=== PATIENT | male | born 1960 | race Caucasian/White ===

== ENCOUNTER 2023-03-02 04:00 | Day surgery (SDC) | payer OTHER ==
[2023-03-02] VITALS (216 sets, daily range): BP systolic 85–161; BP diastolic 48–105
[~2023-03-02] VITALS: Ht 170.2 cm; Wt 68.2 kg
--- NOTE | 2023-03-02 07:10 | NUR ---
Patient arrived to the [facility] suite, identification and demographics confirmed. Patient to room 9, AAO, ambulatory, vitals obtained, ID/allergy/fall bands placed, changed into hospital gown, JACQUES hose, and non-slip socks. Procedure and timeline explained for treatment and discharge. All questions answered and the patient presents no concerns at this time.
--- NOTE | 2023-03-02 07:35 | NUR ---
Dr. Ochoa telephoned with patient intake information including usage, dose, last dose/time taken and initial vital signs. Patient history and allergies reviewed with MD. Orders received for 10 mg PO Valium and 0.2 mg PO Clonidine now. Will reassess per protocol in 1.5 hours and update MD with assessment and vitals
[2023-03-02] MEDS ORDERED: TAMSULOSIN0.4 MG PO (08:12)
[2023-03-02] MEDS ORDERED: ZOLOFT100 MG PO (08:12)
[2023-03-02] MEDS ORDERED: MIRALAX17 GM PO (08:13)
[2023-03-02] MEDS ORDERED: OMEPRAZOLE DR40 MG PO (08:13)
[2023-03-02 08:16] LABS: BASO% 0.7 % (0-3); EOS% 1.6 % (0-8); HEMATOCRIT 44.6 % (39.0-50.0); HEMOGLOBIN 14.8 g/dl (14.0-18.0); IMMATURE GRANULOCYTES 0.5 % (0.0-5.0); LYMPH% 20.9 % (15-41); MEAN CELL VOLUME 88.5 fL CALC (80.0-100.0); MEAN CORPUSCULAR HGB 29.4 pG CALC (26.0-32.0); MEAN CORPUSCULAR HGB CONC 33.2 g/dL CAL (32.0-36.0); MONO% 7.8 % (2-13); NEUT# 4.2 thou/uL (1.82-7.42); NEUT% 68.5 % (42-76); RED BLOOD COUNT 5.04 mill/uL (4.70-6.10); RED CELL DISTRI WIDTH 12.1 % (11.5-15.5)
[2023-03-02] MEDS ORDERED: OX BILE PO (08:16)
[2023-03-02 08:31] LABS: ALBUMIN 4.2 g/dL (3.2-5.0); ALKALINE PHOSPHATASE 62 u/l (38-126); ANION GAP 7 (6-22 (CALC)); BILIRUBIN, TOTAL 0.2 mg/dL (0.2-1.3); BUN 31 mg/dL (8-23); BUN/CREATININE RATIO 40 (12-20 (CALC)); CARBON DIOXIDE 30 mmol/l (22-30); CHLORIDE 107 mmol/l (95-108); CREATININE 0.8 mg/dL (0.7-1.3); GFR FOR AFR.AMER. > 60 ML/MIN (>=60 (CALC)); GFR OTHER RACES > 60 ML/MIN (>=60 (CALC)); POTASSIUM 4.3 mmol/l (3.5-5.1); SGOT/AST 36 u/l (19-48); SODIUM 139 mmol/l (137-146); TOTAL PROTEIN 6.2 g/dL (6.3-8.2)
--- NOTE | 2023-03-02 09:06 | NUR ---
telephoned with reassessment and new vital signs. Reviewed initial Valium and Clonidine dose with MD. Orders received for 5 mg PO Valium now. Will reassess per protocol in 1.5 hours and update MD with assessment and vitals.
--- NOTE | 2023-03-02 10:17 | NUR ---
Patient resting comfortably in bed. Easily aroused, maintains focus, and drifts back to sleep. No signs of active withdrawal or distress noted at this time. Continuous SPO2, rhythm, and respiratory monitoring initiated. IVF @ 250 mL/HR, room air, VSS.
--- NOTE | 2023-03-02 11:17 | NUR ---
Induction Note Patient to [facility] procedure room. Time out performed at 1105. Patient placed on monitors, Srinivas hugger, bilateral wrist restraints applied for ET tube protection. Versed 5mg given IV push at 1106 Tourniquet applied to right arm Lidocaine 100mg given at 1107 IV push followed by Rocoronium 10mg at 1108 IV push and held for 90 seconds. Propofol bolus of 140mg given at 1110 IV push. Succinylcholine 80mg given IV push at 1111. Smooth intubation with 7.5 ETT secured with tape 21 at the lip. Positive CO2. Positive Auscultation for air exchange. Patient placed on ventilator for spontaneous ventilation. Placed on Propofol IV drip at 1112. OG inserted. Positive air on auscultation. Positive gastric content. Stomach washed at this time. Naltrexone 50mg given via OG tube with Clonidine 0.1 mg given via OG Tube. OG clamped for 45 minutes. Will monitor patient for symptoms of withdrawal and adjust propfol accordingly.
--- NOTE | 2023-03-02 12:02 | NUR ---
OG open note OG open at this time. Gastric content draining into drainage bag. OG to drain for 45 minutes. Propofol will be titrated down based on patient.
--- NOTE | 2023-03-02 12:47 | NUR ---
OG close note Stomach washed at this time. Naltrexone 50 mg with Clonidine 0.3 mg via OG tube. OG will be clamped for 45 minutes.
--- NOTE | 2023-03-02 14:20 | NUR ---
OG close note Stomach washed at this time. Naltrexone 50 mg with Clonidine 0.2 mg via OG tube. OG will be clamped for 45 minutes.
--- NOTE | 2023-03-02 16:00 | NUR ---
No OG close at this time. Patient minimally reacting to treatment. Vitals, total Naltrexone & Clonidine, current Propofol infusion rate, treatment duration, and patient assessment discussed with Dr. Ochoa. No orders for medication administration at this time. OG will remain open to allow time for patient to continue reacting to therapy.
--- NOTE | 2023-03-02 16:46 | NUR ---
OG close note Stomach washed at this time. Naltrexone 25 mG, Valium 10mg, and Clonidine 0.2 mg via OG tube. OG will be clamped for 20-30 minutes for closing dose.
--- NOTE | 2023-03-02 17:20 | NUR ---
Extubation note Closing medications given Benadryl 50mg IV push, Decadron 10mg IV push,Magnesium 4 grams IV, Zofran 8mg IV push, Octreotide 100mcg SC. Stomach washed out prior to extubation. Suctioned gastric content. OG removed. Patient extubated. Propofol Discontinued. Wrist restraints removed. Srinivas hugger Removed. See [facility] Moderate sedate recovery record for further notes and assessment.
--- NOTE | 2023-03-02 17:50 | NUR ---
PT TRANSFERED TO [facility]. VSS. BEDSIDE REPORT PROVIDED TO JESSICA NUNN. PT BROTHER NOTIFIED AND UPDATED PROVIDED AT THIS TIME BY JOHN PASCUAL.
[2023-03-02] MEDS ORDERED: CLONIDINE0.1 MG PO (17:54)
[2023-03-02] MEDS ORDERED: NALTREXONE50 MG PO (17:54)
[2023-03-02] MEDS ORDERED: KLONOPIN2 MG PO (17:55)
--- NOTE | 2023-03-02 20:00 | NUR ---
PT SLEEPING NO DISTRESS NOTED DURING ASSESSMENT. VS WNL ON RA. BED ALARM ON. LR @ 100 ML/HR.
--- NOTE | 2023-03-02 22:41 | NUR ---
PT HAS VOMITED MULTIPLE TIMES EVEN AFTER GIVEN HIM ZOFRAN AND DEXAMETHASONE. NURSE GAVE PT A SIP OF WATER WHICH CAUSE PT TO VOMITE AGAIN. NURSE GAVE HALDOL THIS TIME. WILL TRY AGAIN IN AROUND ONE HOUR TO SEE IF SEE TOLERATES ORAL FLUIDS TO TAKE PO MEDS THAT ARE DUE. BED ALARM ON.
--- NOTE | 2023-03-03 02:30 | NUR ---
PT VOMITED AGAIN. PRN MED GIVEN. BED ALARM ON. PT VOIDING WITHOUT ANY ISSUES.
--- NOTE | 2023-03-03 04:30 | NUR ---
PT RESTING HAS NOT VOMITED AGAIN SINCE 0215AM. BED ALARM ON.
[2023-03-03 04:51] VITALS: BP 160/88
[2023-03-03 06:42] LABS: BASO% 0.1 % (0-3); HEMATOCRIT 47.7 % (39.0-50.0); HEMOGLOBIN 16.2 g/dl (14.0-18.0); IMMATURE GRANULOCYTES 0.2 % (0.0-5.0); LYMPH% 2.9 % (15-41); MEAN CELL VOLUME 84.6 fL CALC (80.0-100.0); MEAN CORPUSCULAR HGB 28.7 pG CALC (26.0-32.0); MONO% 4.7 % (2-13); NEUT# 10.38 thou/uL (1.82-7.42); NEUT% 92.1 % (42-76); RED BLOOD COUNT 5.64 mill/uL (4.70-6.10)
[2023-03-03 07:03] LABS: ALBUMIN 3.9 g/dL (3.2-5.0); ALKALINE PHOSPHATASE 72 u/l (38-126); BUN 14 mg/dL (8-23); BUN/CREATININE RATIO 24 (12-20 (CALC)); CARBON DIOXIDE 26 mmol/l (22-30); CHLORIDE 106 mmol/l (95-108); CREATININE 0.6 mg/dL (0.7-1.3); GFR FOR AFR.AMER. > 60 ML/MIN (>=60 (CALC)); GFR OTHER RACES > 60 ML/MIN (>=60 (CALC)); SGOT/AST 30 u/l (19-48); SODIUM 139 mmol/l (137-146); TOTAL PROTEIN 5.9 g/dL (6.3-8.2)
[2023-03-03 07:05] LABS: ANION GAP 10 (6-22 (CALC)); BILIRUBIN, TOTAL 0.6 mg/dL (0.2-1.3); POTASSIUM 2.8 mmol/l (3.5-5.1)
--- NOTE | 2023-03-03 08:00 | NUR ---
PT IN BED WITH HOB UP RESTING WITH HOB UP, PT AWAKE TO VOICE; PT IS DROWSY BUT ORIENTED X 3. PT HAS NO C/O PAIN AT THIS TIME. IV SITE TO RH AND LH CLEAN AND INTACT WITH LR INFUSING @ 100 ML/HR. PT LUNGS CLEAR THROUGOUT AND BREATHING IS NON LABORED. PT ABD IS SOFT WITH ACTIVE BS. PT AMBULATES WITH STANDBY ASSIST TO BATHROOM FOR TOILETING NEEDS. PT HAS NO C/O PAIN AT THIS TIME. PT HAS CALL LIGHT WITHIN REACH AND SAFETY MEASURES IN PLACE AT THIS TIME.
[2023-03-03 08:43] VITALS: BP 160/88
--- NOTE | 2023-03-03 10:15 | NUR ---
PT OUT OF BED UP IN SHOWER, PT TOLERATED WELL.
--- NOTE | 2023-03-03 12:00 | NUR ---
PT IN BED WITH HOB UP EATIN LUNCH. PT EATING AND DRINKING WELL. PT HAS CALL LIGHT WITHIN REACH AND SAFETY MEASURES IN PLACE AT THIS TIME.
--- NOTE | 2023-03-03 16:29 | NUR ---
Discharge instructions given. Patient verbalizes understanding of same. Discharged in stable condition via Wheelchair to Home with family. All belongings sent with pt.
== END 2023-03-03 16:26 | disposition home or self-care (01) | DRG 897 ==
LOC: MS2 04:00 → ANR 04:00 → MS2 07:20 → ANR 09:00 → MS2 16:50 → ANR 03-03 16:26
PROVIDERS: ATTEND Anesthesiology Critical Care Medicine
DX: F11.20 Opioid dependence, uncomplicated (principal)
CPT/HCPCS: J0131; J1100; J2354; J3475

== ENCOUNTER 2023-03-06 11:56 | Emergency (ER) | payer BC ==
[~2023-03-06] VITALS: Ht 170.2 cm; Wt 68.0 kg
[~2023-03-06 11:56] MED LIST: CLONIDINE0.1 MG PO; KLONOPIN2 MG PO; MIRALAX17 GM PO; NALTREXONE50 MG PO; OMEPRAZOLE DR40 MG PO; OX BILE PO; TAMSULOSIN0.4 MG PO; ZOLOFT100 MG PO
[2023-03-06 12:07] VITALS: BP 146/96
[2023-03-06 12:38] LABS: BASO% 0.1 % (0-3); EOS% 0.4 % (0-8); HEMATOCRIT 50.7 % (39.0-50.0); HEMOGLOBIN 17.7 g/dl (14.0-18.0); LYMPH% 16.7 % (15-41); MEAN CELL VOLUME 84.2 fL CALC (80.0-100.0); MEAN CORPUSCULAR HGB 29.4 pG CALC (26.0-32.0); MEAN CORPUSCULAR HGB CONC 34.9 g/dL CAL (32.0-36.0); MONO% 7.8 % (2-13); NEUT# 8.05 thou/uL (1.82-7.42); RED BLOOD COUNT 6.02 mill/uL (4.70-6.10); RED CELL DISTRI WIDTH 11.6 % (11.5-15.5)
[2023-03-06 12:55] LABS: ALBUMIN 4.3 g/dL (3.2-5.0); ALKALINE PHOSPHATASE 72 u/l (38-126); BUN 22 mg/dL (8-23); CARBON DIOXIDE 25 mmol/l (22-30); CHLORIDE 104 mmol/l (95-108); LIPASE 439 u/l (23-300); SGOT/AST 37 u/l (19-48); SODIUM 139 mmol/l (137-146); TOTAL PROTEIN 6.4 g/dL (6.3-8.2)
[2023-03-06 13:01] LABS: ANION GAP 13 (6-22 (CALC)); BUN/CREATININE RATIO 20 (12-20 (CALC)); CREATININE 1.1 mg/dL (0.7-1.3); GFR FOR AFR.AMER. > 60 ML/MIN (>=60 (CALC)); GFR OTHER RACES > 60 ML/MIN (>=60 (CALC)); POTASSIUM 3.4 mmol/l (3.5-5.1)
[2023-03-06 14:20] VITALS: BP 160/92
[2023-03-06 14:30] VITALS: BP 157/91
[2023-03-06 14:49] VITALS: BP 160/96
[2023-03-06 15:00] VITALS: BP 163/94
[2023-03-06 15:08] LABS: URINE BILIRUBIN - DIPSTICK Negative (NEGATIVE); URINE BLOOD DIPSTICK Negative (NEGATIVE); URINE COLOR Yellow; URINE GLUCOSE - DIPSTICK Negative (NEGATIVE); URINE KETONE Negative (NEGATIVE); URINE LEUK ESTERASE Negative (NEGATIVE); URINE NITRITE - DIPSTICK Negative (Negative); URINE PROTEIN - DIPSTICK Negative (NEG-TRACE); URINE SPECIFIC GRAVITY 1.015; URINE UROBILINOGEN - DIPSTICK 0.2 E.U./dL (0.2)
[2023-03-06] MEDS ORDERED: ZOFRAN4 MG/TAB PO (15:09)
[2023-03-06 15:22] VITALS: BP 163/94
== END 2023-03-06 15:22 | disposition home or self-care (01) | DRG 641 ==
LOC: ED 11:56
PROVIDERS: Family Medicine
DX: E86.0 Dehydration (principal); F11.20 Opioid dependence, uncomplicated; K21.9 Gastro-esophageal reflux disease without esophagitis; F32.A Depression, unspecified; Z20.822 Contact with and (suspected) exposure to COVID-19